=== PATIENT | female | born 1935 | race Two or more races ===

== ENCOUNTER → 2024-02-10 | Outpatient (CLI) | payer MEDICARE, BC, SELFPAY ==
[2024-02-10 16:41] LABS: Basophils # (Auto) 0.1 Thou/mm3 (0.0-0.2); Basophils % (Auto) 1 % (0-2.5); Eosinophils # (Auto) 0.4 Thou/mm3 (0.0-0.5); Eosinophils % (Auto) 7 % (0-10); Hematocrit 39.8 % (36.0-46.0); Hemoglobin 12.6 g/dL (12.0-16.0); Immature Granulocytes % (Auto) 0 % (0-0); Immature Granulocytes Auto 0.01 Thou/mm3 (0.00-0.00); Lymphocytes % (Auto) 32 % (10-50); Mean Corpuscular HGB Conc 31.7 g/dl (31.0-37.0); Mean Corpuscular Hemoglobin 29.2 pg (25.0-35.0); Mean Corpuscular Volume 92 fL (80-100); Monocytes # (Auto) 0.7 Thou/mm3 (0.0-0.8); Monocytes % (Auto) 10 % (0-12); Neutrophils # (Auto) 3.1 Thou/mm3 (1.8-7.7); Neutrophils % (Auto) 50 % (37-80); Nucleated Red Blood Cell % 0 /100 WBC (0); Platelet Count 205 Thou/mm3 (140-440); RDW Standard Deviation 44.8 fL (36.4-46.3); Red Blood Count 4.32 Miln/mm3 (4.00-5.20); White Blood Count 6.3 Thou/mm3 (3.6-11.0)
[2024-02-10 16:55] LABS: Glucose Estimated Average 108 mg/dL (80-131); Hemoglobin A1C 5.4 % Hgb (4.8-6.0)
[2024-02-10 17:09] LABS: Alanine Aminotransferase 10 U/L (10-49); Albumin, Serum 4.5 gm/dL (3.4-4.8); Alkaline Phosphatase 94 U/L (46-116); Anion Gap 5 (7-16); Aspartate Amino Transferase 17 U/L (0-34); BUN/Creatinine Ratio 18 Ratio (12-20); Bilirubin,Total 0.4 mg/dL (0.3-1.2); Blood Urea Nitrogen 22 mg/dL (9-23); Calcium 9.8 mg/dL (8.3-10.6); Calcium (Corrected) 9.8 mg/dL (8.5-10.1); Carbon Dioxide 33.1 mMol/L (20.0-31.0); Cardiac Risk Estimate 2.4 RATIO (3.7-5.6); Chloride 103 mMol/L (98-107); Cholesterol 199 mg/dL (132-200); Creatinine (Component) 1.2 mg/dL (0.6-1.3); Free T4 (Free Thyroxine) 1.08 ng/dL (0.89-1.76); Globulin 2.3 gm/dL (2.3-3.5); Glucose 90 mg/dL (74-106); HDL Cholesterol 84 mg/dL (40-60); LDL Cholesterol,Calculated 97 mg/dL (0-130); Osmolality,Calculated 284 (275-295); Sodium 141 mMol/L (136-145); Thyroid Stimulating Hormone 4.18 uIU/mL (0.55-4.78); Total Protein 6.8 gm/dL (5.7-8.2); Triglycerides 88 mg/dL (30-150); eGFR 44 See Note
== END | disposition home or self-care (01) ==
LOC: COPL 14:36
PROVIDERS: PCP Family Medicine; Referring Provider Family Medicine; Visit Provider Family Medicine
DX: E11.65 Type 2 diabetes mellitus with hyperglycemia (principal); E78.1 Pure hyperglyceridemia; E03.2 Hypothyroidism due to medicaments and other exogenous substances; D50.0 Iron deficiency anemia secondary to blood loss (chronic)
CPT/HCPCS: 36415; 80053; 80061; 83036; 84439; 84443; 85025

== ENCOUNTER → 2024-06-29 | Outpatient (CLI) | payer MEDICARE, BC, SELFPAY ==
[2024-06-29 17:33] LABS: Basophils # (Auto) 0.1 Thou/mm3 (0.0-0.2); Basophils % (Auto) 1 % (0-2.5); Eosinophils # (Auto) 0.5 Thou/mm3 (0.0-0.5); Eosinophils % (Auto) 6 % (0-10); Hematocrit 38.2 % (36.0-46.0); Hemoglobin 12.6 g/dL (12.0-16.0); Immature Granulocytes % (Auto) 0 % (0-0); Immature Granulocytes Auto 0.02 Thou/mm3 (0.00-0.00); Lymphocytes # (Auto) 2.2 Thou/mm3 (1.0-4.8); Lymphocytes % (Auto) 27 % (10-50); Mean Corpuscular Hemoglobin 29.6 pg (25.0-35.0); Mean Corpuscular Volume 90 fL (80-100); Monocytes # (Auto) 0.8 Thou/mm3 (0.0-0.8); Monocytes % (Auto) 10 % (0-12); Neutrophils # (Auto) 4.6 Thou/mm3 (1.8-7.7); Neutrophils % (Auto) 57 % (37-80); Nucleated Red Blood Cell % 0 /100 WBC (0); Platelet Count 223 Thou/mm3 (140-440); RDW Standard Deviation 43.2 fL (36.4-46.3); Red Blood Count 4.25 Miln/mm3 (4.00-5.20); White Blood Count 8.1 Thou/mm3 (3.6-11.0)
[2024-06-29 17:40] LABS: INR 1.2 (0.9-1.3); Partial Thromboplastin Time 25.4 Seconds (22.0-36.0); Prothrombin Time 13.4 Seconds (9.0-12.2)
[2024-06-29 17:43] LABS: Anion Gap 9 (7-16); BUN/Creatinine Ratio 23 Ratio (12-20); Blood Urea Nitrogen 30 mg/dL (9-23); Calcium 9.4 mg/dL (8.3-10.6); Carbon Dioxide 33.9 mMol/L (20.0-31.0); Chloride 99 mMol/L (98-107); Creatinine (Component) 1.3 mg/dL (0.6-1.3); Glucose 97 mg/dL (74-106); Osmolality,Calculated 289 (275-295); Potassium 4.7 mMol/L (3.4-5.1); Sodium 142 mMol/L (136-145); eGFR 40 See Note
== END | disposition home or self-care (01) ==
LOC: COPL 15:56
PROVIDERS: PCP Family Medicine; Referring Provider Internal Medicine; Visit Provider Internal Medicine
DX: I25.10 Atherosclerotic heart disease of native coronary artery without angina pectoris (principal); I48.91 Unspecified atrial fibrillation
CPT/HCPCS: 36415; 80048; 85025; 85610; 85730

== ENCOUNTER → 2024-09-03 | Outpatient (CLI) | payer MEDICARE, BC, SELFPAY ==
--- NOTE | 2024-09-03 14:48 | XR_ITS ---
EXAMINATION: Cervical spine, 5 views Technique: Cervical spine AP, AP odontoid, lateral, bilateral obliques, 5 views Exam date and time: September 03, 2024 1508 hours Comparison August 05, 2020 INDICATIONS: Neck pain years FINDINGS: Severe osteopenia No cervical fracture Cervical fusion C4-C6 with anatomic alignment Advanced degenerative disc disease C3-C4, C6-C7 Extensive laminectomies Mild to moderate diffuse neural foraminal stenosis IMPRESSION: Cervical fusion C4-C6 with satisfactory alignment Advanced degenerative disc disease C3-C4, C6-C7
== END | disposition home or self-care (01) ==
PROVIDERS: PCP Family Medicine; Referring Provider Family Medicine; Visit Provider Family Medicine
DX: M43.22 Fusion of spine, cervical region (principal); M50.31 Other cervical disc degeneration, high cervical region
CPT/HCPCS: 72050

== ENCOUNTER → 2024-10-13 | Outpatient (CLI) | payer MEDICARE, BC, SELFPAY ==
--- NOTE | 2024-10-13 15:36 | XR_ITS ---
Examination: CT cervical spine without contrast 2-D sagittal reconstructions 2-D coronal reconstructions 3-D reconstructions. Exam date and time:October 13, 2024, 1546 hours, comparison 10/31/2020 INDICATIONS: Patient fell 3 months ago with injury to the neck, neck pain, history neck surgery CTDI:vol (mGy) 17 DLP: (mGycm) 351 Technique: Multiple 2 mm axial sections of the cervical spine have been obtained. The coronal and sagittal reconstructions have been obtained. 3-D reconstructions have been obtained. Low dose protocols were performed. One or more of the following dose reduction techniques were used; automated exposure control, adjustment of the mA and/or KV according to patient size, use of iterative reconstruction technique. Findings: Axial sections demonstrate intact base of the skull. C1 exhibit satisfactory relationship to the odontoid. No acute cervical vertebral body fracture seen. Alignment posterior spinous processes satisfactory. Severe osteopenia Cervical fusion C4-C6 Advanced disc narrowing above and below the fusion site Laminectomies C3, C4 No acute cervical fracture C3-C4 moderate bilateral neural foraminal stenosis C4-C5 moderate bilateral neural foraminal stenosis C5 C5 C6 moderate bilateral neural foraminal stenosis C6-C7 moderate bilateral neural foraminal stenosis Impression: No acute cervical fracture.
== END | disposition home or self-care (01) ==
PROVIDERS: PCP Family Medicine; Referring Provider Family Medicine; Visit Provider Family Medicine
DX: M54.2 Cervicalgia (principal); R42 Dizziness and giddiness
CPT/HCPCS: 72125

== ENCOUNTER 2025-02-13 23:47 | Emergency (ER) | payer MEDICARE, BC, SELFPAY ==
[2025-02-13 23:53] VITALS: PULSE 77; RESP 18; O2SAT 99; BMI 36.8
[2025-02-13 23:54] VITALS: BP 190/88; PULSE 67; RESP 16; TEMP 36.7; O2SAT 93
[2025-02-13 23:56] VITALS: BMI 38.1
[2025-02-14 00:15] VITALS: BP 180/82; PULSE 67; RESP 18; TEMP 37.1; O2SAT 97
--- NOTE | 2025-02-14 00:30 | EKG_ITS ---
[facility] Test Date: 2025-02-14 Pat Name: MICH CUEVAS Department: Room: - Gender: Female Director Zone: : 1935 Requested By: Vicente Olivier Order Number: [id number] Reading MD: Vicente Olivire Measurements Intervals Melvin Rate: 65 P: 61 ID: [id number] QRS: 13 QRSD: 81 T: 49 QT: 386 QTc: 404 Interpretive Statements SINUS RHYTHM LOW QRS VOLTAGE IN PRECORDIAL LEADS [QRS DEFLECTION < 1.0 mV IN CHEST LEADS] POSSIBLE ANTERIOR MYOCARDIAL INFARCTION , OF INDETERMINATE AGE [30 ms Q WAVE IN V3/V4, OR R < 0.2 mV IN V4] Compared to ECG 06/22/2022 07:57:19 Low QRS voltage now present Myocardial infarct finding now present /store/S0/[id number]/[id number].pdf
--- NOTE | 2025-02-14 00:30 | XR_ITS ---
Examination: CT brain head without contrast. 2-D sagittal coronal reconstructions Date and time of exam: February 14, 2025, 0132 hours INDICATIONS: Patient fell today, ground-level fall with injury to the head, head pain CTDI: vol (mGy): 47 DLP: (mGycm): 913 Technique: Multiple CT axial sections of the brain have been obtained, 5 mm slice thickness. Contrast has not been administered. 2-D sagittal, coronal reconstructions have been obtained Low dose protocols were performed. One or more of the following dose reduction techniques were used; automated exposure control, adjustment of the mA and/or KV according to patient size, use of iterative reconstruction technique. Findings: No significant ventricular enlargement. Intra-axial or extra-axial hemorrhage density is not seen. No mass effect or midline shift Basal cisterns are not remarkable. Fourth ventricle is midline. Cranial vault intact. Impression: Negative for acute hemorrhage, mass effect or midline shift
--- NOTE | 2025-02-14 00:31 | PD.EDRME ---
Rapid Medical Screening Exam RME Arrival date/time: 02/13/25 23:47 Chief Complaint: Fall Vital signs: Vital Signs Temperature 98.1 F 02/13/25 23:54 Pulse Rate 67 02/13/25 23:54 Respiratory Rate 16 02/13/25 23:54 Blood Pressure 190/88 H 02/13/25 23:54 Pulse Oximetry (%) 93 L 02/13/25 23:54 Oxygen Delivery Method Room Air 02/13/25 23:54 Vital signs reviewed by provider: Yes RME Narrative: This patient is a 89-year-old female who is brought in by EMS status post ground-level fall at home approximately 1 hour prior to arrival. Patient states she got dizzy and fell, striking the superior aspect of her forehead and causing a bleeding event. At evaluation, no active bleed was noted. Some dried blood was appreciated above multiple hematomas. Patient gives a history of dizziness and is waiting for a referral from her primary care provider for a neurologic evaluation. Exam: Patient has superior forehead trauma with no active bleed. Clinical Impression: Ground-level fall resulting in hip trauma, hypertensive urgency
[2025-02-14 00:39] VITALS: BP 199/104; PULSE 65
[2025-02-14] MEDS: hydrALAZINE INJ 20 MG/ML VIAL 10 MG IVP (00:39)
[2025-02-14 01:09] VITALS: BP 124/65; PULSE 74; RESP 18; O2SAT 99
[2025-02-14 01:18] LABS: Lactate (Lactic Acid) 1.3 mMol/L (0.4-2.0)
[2025-02-14 01:20] LABS: Basophils # (Auto) 0.1 Thou/mm3 (0.0-0.2); Basophils % (Auto) 1 % (0-2.5); Eosinophils # (Auto) 0.6 Thou/mm3 (0.0-0.5); Eosinophils % (Auto) 8 % (0-10); Hematocrit 38.7 % (36.0-46.0); Hemoglobin 12.1 g/dL (12.0-16.0); Immature Granulocytes Auto 0.02 Thou/mm3 (0.00-0.00); Lymphocytes # (Auto) 1.9 Thou/mm3 (1.0-4.8); Lymphocytes % (Auto) 25 % (10-50); Mean Corpuscular HGB Conc 31.3 g/dl (31.0-37.0); Mean Corpuscular Hemoglobin 28.9 pg (25.0-35.0); Mean Corpuscular Volume 92 fL (80-100); Monocytes # (Auto) 0.8 Thou/mm3 (0.0-0.8); Monocytes % (Auto) 10 % (0-12); Neutrophils # (Auto) 4.2 Thou/mm3 (1.8-7.7); Neutrophils % (Auto) 55 % (37-80); Nucleated Red Blood Cell # 0.00 Thou/mm3 (0.00-0.00); Nucleated Red Blood Cell % 0 /100 WBC (0); Platelet Count 294 Thou/mm3 (140-440); RDW Standard Deviation 43.8 fL (36.4-46.3); Red Blood Count 4.19 Miln/mm3 (4.00-5.20); White Blood Count 7.6 Thou/mm3 (3.6-11.0)
--- NOTE | 2025-02-14 01:52 | PD.EDFALL ---
ED Fall Injury RME/HPI General Chief Complaint: Fall Stated Complaint: FALL Time Seen by Provider: 02/14/25 00:44 Arrival date/time: 02/13/25 23:47 RME / HPI RME / HPI Narrative: This patient is a 89-year-old female who is brought in by EMS status post ground-level fall at home approximately 1 hour prior to arrival. Patient states she got dizzy and fell, striking the superior aspect of her forehead and causing a bleeding event. At evaluation, no active bleed was noted. Some dried blood was appreciated above multiple hematomas. Patient gives a history of dizziness and is waiting for a referral from her primary care provider for a neurologic evaluation. DR. GIL MAIN ED EVALUATION: Patient presenting with reported brief syncopal episode shortly after assuming upright position causing her to fall backwards causing her to strike the posterior occiput and encurring minor abrasion to forehead. Family came to assist and contacted EMS who then transported patient to the ED Vitals remained stable en route and neurologically intact. Denied escalating ELLIOTT, nausea, although did complain of neck pain, reports baseline radicular symptoms involving the left side. which are unchanged. PMH: Chronic neck and lumbar pain, Dependent edema, Transient Ischemic Attacks (TIA), Peripheral Neuropathy, Migraine, Cardiac Arrhythmia, Angina, Heart Murmur, Peripheral Vascular Disease, Hypercholesterolemia, Hypertension, Varicose Veins, Asthma, Bronchitis, Pneumonia, Tuberculosis, Sleep Apnea, Gastrointestinal Bleed, Hiatal Hernia, Gastroesophageal Reflux Disease, Obesity, Arthritis, Degenerative Disk Disease, Carpal Tunnel Syndrome, Degenerative Joint Disease, Cataracts, Depression and Anxiety PSH: Multiple cervical lumbar procedures, Angiogram, Hysterectomy Allergies: Codeine, Sulfameethoxazole, Trimethoprim, Sulfa Social: Nonsmoker, nondrinker, no illict drug abuse Exam: Patient has superior forehead trauma with no active bleed. Impression: Ground-level fall resulting in hip trauma, hypertensive urgency Related Data Home Medications ?Medication ?Instructions ?Recorded ?Confirmed metoprolol succinate 50 mg 50 mg PO BID ##30 01/04/17 06/25/22 tablet,extended release 24 hr acetaminophen 500 mg tablet 500 mg PO Q6H PRN Pain 03/11/20 06/22/22 albuterol sulfate 90 mcg/actuation 1 puff inhalation QID PRN Wheezing 03/11/20 06/22/22 aerosol inhaler bumetanide 2 mg tablet 2 mg PO QDAY 03/11/20 06/22/22 fluticasone propionate 50 1 spray intranasal BID 03/11/20 06/22/22 mcg/actuation nasal spray,suspension gabapentin 100 mg capsule 300 mg PO BID 03/11/20 06/22/22 (Neurontin) losartan 50 mg tablet 50 mg PO BID 03/11/20 06/22/22 aspirin 81 mg tablet,delayed 81 mg PO QAM 05/16/22 06/22/22 release clotrimazole 1 % topical solution 1 applic topical BID 05/16/22 06/22/22 methocarbamol 500 mg tablet 500 mg PO Q12HR PRN Pain 05/16/22 06/22/22 Held on 05/16/22. Instructions: Resume on 05/17/22. Allergies Allergy/AdvReac Type Severity Reaction Status Date / Time codeine Allergy Severe NIGHTMARES Verified 06/25/22 06:55 sulfamethoxazole Allergy Severe Swelling Verified 06/25/22 06:55 trimethoprim Allergy Severe Swelling Verified 06/25/22 06:55 Sulfa (Sulfonamide Allergy Intermediate Swelling Verified 06/25/22 06:55 Antibiotics) of Lip/Tongue/Throat Milk Containing Products Allergy Mild GAS Verified 06/25/22 06:55 (Dairy) (Milk Containing Products) Review of Systems Review of Systems Systems Reviewed: All systems reviewed, normal except as documented Past Medical History Past Medical History NEUROLOGIC: Positive Transient Ischemic Attacks (TIA), Peripheral Neuropathy and Migraine CARDIAC: Positive Cardiac Disorders, Cardiac Arrhythmia, Angina, Heart Murmur, Peripheral Vascular Disease, Hypercholesterolemia, Hypertension and Varicose Veins RESPIRATORY: Positive Asthma, Bronchitis, Pneumonia, Tuberculosis (PPD positive) and Sleep Apnea GASTROINTESTINAL: Positive Gastrointestinal Disorders, Gastrointestinal Bleed (rectal tags-removed), Hiatal Hernia, Gastroesophageal Reflux Disease and Obesity REPRODUCTIVE: Positive Previous Pregnancies MUSCULOSKELETAL: Positive Musculoskeletal Disorders, Arthritis, Degenerative Disk Disease, Carpal Tunnel Syndrome (bilateral hand/finger surgeries), Fractures (right ring finger) and Degenerative Joint Disease ENT: Positive Cataracts (cassia) PSYCHO/SOCIAL: Positive Depression and Anxiety OTHER HISTORY: Positive Hospitalization (surgeries), Autoimmune Disease, Shingles, Falls, Chicken Pox, Measles and Mumps Family History FAMILY HISTORY: Positive Family Cardiac Disorders (parents, brothers) and Family Surgery (hernia repairs) Surgical History SURGICAL: Positive Vascular Surgery (vein ablation 2017 BLE), Cardiac Catheterization, Angiogram, Abdominal Surgery and Hysterectomy ED Exam Narrative Physical exam: GEN. APPEARANCE: The patient is alert awake oriented X-3 limited recall of events that transpired, and is mildly amnestic. Patient has good eye contact. Patient is cooperative. VITALS: All vitals were reviewed and the pulse ox is 99%, which is normal according to my interpretation HEENT: Normocephalic, superficial abrasions to high forehead with no step-off deformities. Pupils are equal and reactive. Oral mucosa is moist. NECK: Supple, no meningismus, no JVD. There is no thyromegaly and no lymphadenopathy. TTP at cervical-thoracic junction, no step off. CHEST: Nontender on palpation no deformity and no crepitus. CARDIOVASCULAR: Heart regular rhythm, no murmur or gallop rub or extra beats. LUNGS: Clear to auscultation bilaterally with symmetrical chest rise. No laboring tachypnea or wheezing. No intercostal subcostal retraction. No rales and no rhonchi. ABDOMEN: Soft, flat, nontender to palpation, no guarding or rebound tenderness. There are no abnormal masses palpated. No pulsatile masses or bruits. Active and normal bowel sounds. EXTREMITIES: Normal inspection and palpation. No edema. No cyanosis. Patient is able to move all 4 extremities well SKIN: Warm and dry, no rashes noted. MUSCULOSKELETAL: No lumbar or midline bony tenderness. There is no CVA tenderness. No paraspinal muscle spasm or tenderness. NEURO: Cranial nerves II through XII grossly intact. Mild upper and lower left extremity weakness, gait not observed. PSYCHIATRIC: Patient is in normal mood and affect, cooperative. LYMPHATICS: No major lymphadenopathy noted. Course Quality Measures none Orders Category Date Time Status Bedside COVID-19 Antigen Test NOW Care 02/14/25 00:30 Active Bedside Influenza A&B Antigen Test NOW Care 02/14/25 00:30 Completed EKG (ED ONLY) *Do not use* NOW Care 02/14/25 00:30 Completed IV [Insert IV] NOW Care 02/14/25 00:35 Active Orthostatic Vitals NOW Care 02/14/25 02:[address] head/brain wo con Stat Exams 02/14/25 00:30 Taken EKG (ED Only) Stat Exams 02/14/25 00:30 Draft CBC Stat Lab 02/14/25 00:08 Completed CMP [Comprehensive Metabolic Panel] Stat Lab 02/14/25 00:08 Completed Lactate (Lactic Acid) Stat Lab 02/14/25 00:08 Completed Lipase Stat Lab 02/14/25 00:08 Completed Troponin I Stat Lab 02/14/25 00:08 Completed UA [Urinalysis] Stat Lab 02/14/25 02:09 Completed hydrALAZINE INJ [Apresoline Inj] Med 02/14/25 00:34 Discontinued 10 mg IVP X1 ONE Vital Signs Vital signs: Vital Signs Temperature 98.1 F 02/13/25 23:54 Pulse Rate 67 02/13/25 23:54 Respiratory Rate 16 02/13/25 23:54 Blood Pressure 190/88 H 02/13/25 23:54 Pulse Oximetry (%) 93 L 02/13/25 23:54 Oxygen Delivery Method Room Air 02/13/25 23:54 Fall MDM Narrative MDM Narrative:: Scribe Attestation: Rosaura Contreras, am scribing for and in the presence of Dr. Gil. Provider Notation: Although this document has been carefully reviewed, there may still be some phonetic and other typographical errors. These errors are purely grammatical due to imperfections in the software program and should not be construed in any way to compromise the substance of the patient's medical care during this visit. Patient presenting with reported brief syncopal episode shortly after assuming upright position causing her to fall backwards causing her to strike the posterior occiput and encurring minor abrasion to forehead. Family came to assist and contacted EMS who then transported patient to the ED Vitals remained stable en route and neurologically intact. Please see PE findings. Laboratory markers, including CBC and serum chemistries, demonstrated WBC of 7.6, normal Hgb of 12 and platelet count. Serum chemistries demonstrated mild renal insufficiency which is stable. Troponin I undetected. UA with no evidence of infection. Patient was treated with Hydralazine with gradual reduction in pressure. Patient underwent advanced imaging of brain and cervical spine. Remained at baseline throughout ED course and considered stable. Patient likely experienced orthostasis with result in fall. After extended period of observation, considered stable for discharge. Will consider low-dose anti-hypertensive given magnitude of blood pressure upon arrival at ED. Final diagnoses include near-syncope, chronic disequilibrium, and head contusion. Further inquiry suggests patient use assist, i.e. walker, it was enphasized patient utilize assist while walking to prevent falls. Patient data External records reviewed:: [facility] previous records (No prior ED records available for review.) Clinical information provided by:: patient Social determinants that could affect healthcare access:: none Patient has the following chronic illnesses:: Transient Ischemic Attacks (TIA), Peripheral Neuropathy, Migraine, Cardiac Arrhythmia, Angina, Heart Murmur, Peripheral Vascular Disease, Hypercholesterolemia, Hypertension, Varicose Veins, Asthma, Bronchitis, Pneumonia, Tuberculosis, Sleep Apnea, Gastrointestinal Bleed, Hiatal Hernia, Gastroesophageal Reflux Disease, Obesity, Arthritis, Degenerative Disk Disease, Carpal Tunnel Syndrome, Degenerative Joint Disease, Cataracts, Depression and Anxiety How is presenting disease/condition affected by chronic disease/condition?: exacerbated by Evaluation data The following diagnostics were reviewed and interpreted by me:: lab results, radiology exam(s) and EKG tracing(s) (EKG at 00:39 shows normal sinus rhythm at 65, normal axis, no ectopy, no signs of acute ischemia, per my interpretation.) Lab and/or radiology exams considered but not ordered:: None Interpretation Summary: RADIOLOGY Head/Brain CT: Findings: There is no evidence of intracranial hemorrhage, mass effect or midline shift. There are periventricular white matter hypodensities, compatible with chronic small vessel ischemia. There is moderate volume loss. The calvarium is intact. The mastoid air cells and the visualized paranasal sinuses are clear. Impression: 1. No evidence of intracranial hemorrhage, midline shift or calvarial fracture. 2. 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 Aspect score 10. Medications / Prescriptions Medications or Prescriptions considered but not ordered:: None Medication administrations:: Medication Administration History Discontinued Medications Hydralazine HCl (Hydralazine Inj 20 Mg/Ml Vial) 10 mg IVP X1 ONE Stop: 02/14/25 00:35 Last Admin: 02/14/25 00:39 Dose: 10 mg Documented By: ZI See above if any. Consultations Consultation(s) initiated? (list below): No Diagnosis Fall Differential Diagnosis: syncope, dislocation of shoulder region, fracture of wrist, compression fracture, concussion with loss of consciousness and concussion without loss of consciousness Most likely diagnosis given after review of the tests above:: Near-syncope, Chronic disequilibrium, and head contusion. Admission Indicated Admission indicated?: not indicated Explain why admission is indicated or not indicated:: Patient does not meet admission criteria Admission Request Was there a request for admission?: No Disposition Plan Disposition Plan: Discharge Discharge Attestation Discharge Attestation: The patient and all family members were given an opportunity to ask questions and understood the discharge instructions. Discharge instructions specifically effects, indications for sooner follow up or return to the emergency department, and the expected course of current diagnosis. Patient condition: Stable Discharge Plan Plan Patient Disposition: HOME (Self Care) Discharge Disposition comment: Stable Prescriptions/Referrals Prescriptions/Med Rec: No Action metoprolol succinate 50 MG tablet extended release 24 hr 50 mg PO BID Qty: 30 losartan 50 mg Tablet 50 mg PO BID bumetanide 2 mg Tablet 2 mg PO QDAY acetaminophen 500 mg Tablet 500 mg PO Q6H PRN (Reason: Pain) gabapentin [Neurontin] 100 mg Capsule 300 mg PO BID albuterol sulfate 90 mcg/actuation Hfa Aerosol Inhaler 1 puff INHALATION QID PRN (Reason: Wheezing) fluticasone propionate 50 mcg/actuation [place],Suspension 1 spray INTRANASAL BID methocarbamol 500 mg Tablet 500 mg PO Q12HR PRN (Reason: Pain) aspirin 81 mg tablet,delayed release (DR/EC) 81 mg PO QAM Patient Comments: TAKE 1 TABLET BY MOUTH ONCE DAILY IN THE MORNING clotrimazole 1 % solution 1 applic TOPICAL BID Patient Comments: APPLY SOLUTION EXTERNALLY TO AFFECTED AREA TWICE DAILY FOR 30 DAYS Referrals: Cliff Barton MD [Primary Care Provider, Family Practice] - In 1 week Problem List Clinical Impression: Near syncope, Contusion of head, Disequilibrium Impression comment: Near syncope/head contusion/disequilibrium Patient/Caregiver Discharge Instructions Discharge Activity: walk with walker only and activity as tolerated Education Materials: Dizziness Balance Probs Fainting, ED Dizziness, Uncertain Cause, ED Head Injury (Adult) Additional Instructions: Avoid assuming upright position rapidly. Monitor blood pressure twice daily. Utilize walking assist at all time. Follow-up with primary care doctor in 5 to 7 days return if worsening Print Language: Tamazight Stand Alone Forms: Carie Award Info., Patient Portal Info Letter
[2025-02-14 01:57] VITALS: BP 135/83; BP 136/75; BP 140/86; PULSE 84; PULSE 86; PULSE 89
[2025-02-14 01:58] LABS: Alanine Aminotransferase 9 U/L (10-49); Albumin, Serum 4.1 gm/dL (3.4-4.8); Albumin/Globulin Ratio 1.7 (1.2-2.2); Alkaline Phosphatase 86 U/L (46-116); Anion Gap 10 (7-16); Aspartate Amino Transferase 20 U/L (0-34); BUN/Creatinine Ratio 22 Ratio (12-20); Bilirubin,Total < 0.2 mg/dL (0.3-1.2); Blood Urea Nitrogen 26 mg/dL (9-23); Calcium 9.1 mg/dL (8.3-10.6); Calcium (Corrected) 9.1 mg/dL (8.5-10.1); Carbon Dioxide 31.3 mMol/L (20.0-31.0); Chloride 101 mMol/L (98-107); Creatinine (Component) 1.2 mg/dL (0.6-1.3); Estimated Creatinine Clearance 28.2 mL/min (>60); Globulin 2.4 gm/dL (2.3-3.5); Glucose 100 mg/dL (74-106); Lipase 32 U/L (12-53); Osmolality,Calculated 287 (275-295); Potassium 5.1 mMol/L (3.4-5.1); Sodium 142 mMol/L (136-145); Total Protein 6.5 gm/dL (5.7-8.2); Troponin I < 0.020 ng/mL (0.0-0.045); eGFR 44 See Note
[2025-02-14 02:16] LABS: Collection Type, Urine Clean Catch
[2025-02-14 02:18] LABS: Bilirubin,Urine Negative (Negative); Blood,Urine Negative (Negative); Clarity,Urine Clear (Clear/Hazy); Color,Urine Lt-Yellow (Lt Yel-Yel); Glucose, Urine Negative (Negative); Hyaline Casts,Urine < 1 /hpf (0-1); Ketones,Urine Negative (Negative); Leukocyte Esterase,Urine Negative (Negative); Nitrite,Urine Negative (Negative); PH,Urine 6.0 (5.0-7.0); Protein,Urine Negative (Neg - Trace); RBC,Urine 2 /hpf (0-3); Specific Gravity,Urine 1.016 (1.001-1.035); Squamous Epithelial Cell,Urine 1 /hpf (0-5); Urobilinogen,Urine Negative mg/dL (0.0-1.0); WBC,Urine < 1 /hpf (0-5)
--- NOTE | 2025-02-14 03:04 | PRELIM_ITS ---
CT scan of the head without intravenous contrast (axial sections with sagittal and coronal reformats) February 14, 2025 0132 hours Clinical History: Fall/superior forehead trauma Comparison: None available at the time of this report. Findings: There is no evidence of intracranial hemorrhage, mass effect or midline shift. There are periventricular white matter hypodensities, compatible with chronic small vessel ischemia. There is moderate volume loss. The calvarium is intact. The mastoid air cells and the visualized paranasal sinuses are clear. Impression: 1. No evidence of intracranial hemorrhage, midline shift or calvarial fracture. 2. 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 Aspect score 10. Report Electronically Signed By: Wilfredo Jara 02/14/2025 3:03:33 AM [EST]
[2025-02-14 03:09] VITALS: BP 151/86; PULSE 71; RESP 20; TEMP 36.9; O2SAT 94
== END 2025-02-14 03:45 | disposition home or self-care (01) ==
PROVIDERS: Physician Assistant; Emergency Provider Emergency Medicine; PCP Family Medicine
DX: S00.93XA Contusion of unspecified part of head, initial encounter (principal); S00.81XA Abrasion of other part of head, initial encounter; R55 Syncope and collapse; R94.31 Abnormal electrocardiogram [ECG] [EKG]; E78.00 Pure hypercholesterolemia, unspecified; I10 Essential (primary) hypertension; W19.XXXA Unspecified fall, initial encounter
CPT/HCPCS: 36415; 70450; 80053; 81001; 83605; 83690; 84484; 85025; 87502; 87635; 93005; 96374; 99283; J0360

== ENCOUNTER → 2025-02-16 | Outpatient (CLI) | payer MEDICARE, BC, SELFPAY ==
--- NOTE | 2025-02-16 16:25 | XR_ITS ---
EXAMINATION: Skull series 4 views TECHNIQUE: Amanda right lateral and left lateral [facility] skull series 4 views Date and time: 730, 2024, 1640 hours INDICATION: Patient fell 2 days ago with headaches FINDINGS: Intact cranial vault Facial bones including orbits appear intact Sella turcica is not enlarged No abnormal intracranial calcifications Cervical fusion C4-C5 No acute cervical fracture noted IMPRESSION: No cranial vault fracture or facial fracture noted
--- NOTE | 2025-02-16 16:25 | XR_ITS ---
EXAMINATION: Cervical spine, 5 views Technique: Cervical spine AP, AP odontoid, lateral, bilateral obliques, 5 views Exam date and time: February 16, 2025, 1640 hours INDICATION: Patient fell 3 days ago with into the neck, neck pain. FINDINGS: Reversal of normal cervical lordosis. Severe osteopenia. Grade 1 anterolisthesis C2 on C3 Cervical fusion C4-C6 with satisfactory alignment No acute cervical fracture The odontoid appears intact Moderate diffuse bilateral neuroforaminal stenosis There is partial visualization C7 IMPRESSION: Limited study No acute cervical fracture depicted
== END | disposition home or self-care (01) ==
LOC: CDIM 16:18
PROVIDERS: Referring Provider Family Medicine; Visit Provider Family Medicine
DX: S09.90XA Unspecified injury of head, initial encounter (principal); S19.9XXA Unspecified injury of neck, initial encounter; W19.XXXA Unspecified fall, initial encounter
CPT/HCPCS: 70260; 72050